=== PATIENT | male | born 1965 | race Caucasian/White ===

== ENCOUNTER → 2021-01-23 | Outpatient (CLI) | payer BC | LOC: ORTHO 14:50 | PROVIDERS: ATTEND Orthopaedic Surgery | DX: M17.12 Unilateral primary osteoarthritis, left knee (principal) | CPT/HCPCS: 20610 ==

== ENCOUNTER → 2021-04-10 | Outpatient (CLI) | payer BC ==
--- NOTE | 2021-04-10 18:19 | Diagnostic Imaging Report ---
INDICATION: Chronic left knee pain. TIME OF EXAM: 3:10 PM Significant medial compartmental degenerative changes noted. This is complete loss of the medial joint space. There is marginal osteophyte formation noted. Moderate patellofemoral degenerative changes noted. No fracture or dislocation is seen. There is some suprapatellar fullness and a small joint effusion could not be excluded. IMPRESSION: 1. Degenerative changes and a small joint effusion. No acute bony abnormality is detected. Dictated by: Dictated on workstation # [id number]
== END ==
LOC: ORTHO 14:47
PROVIDERS: ATTEND Orthopaedic Surgery
DX: M17.12 Unilateral primary osteoarthritis, left knee (principal)
CPT/HCPCS: 73564; 99212

== ENCOUNTER → 2021-05-29 | Outpatient (CLI) | payer BC | LOC: ORTHO 16:34 | PROVIDERS: ATTEND Orthopaedic Surgery | DX: M17.12 Unilateral primary osteoarthritis, left knee (principal) | CPT/HCPCS: 20610 ==

== ENCOUNTER → 2021-08-28 | Outpatient (CLI) | payer BC | LOC: ORTHO 02:45 | PROVIDERS: ATTEND Orthopaedic Surgery | DX: M17.12 Unilateral primary osteoarthritis, left knee (principal) | CPT/HCPCS: 20610 ==

== ENCOUNTER → 2021-10-21 | Outpatient (CLI) | payer BC ==
--- NOTE | 2021-10-21 10:03 | Diagnostic Imaging Report ---
PROCEDURE: MRI lumbar spine. TECHNIQUE: Multiplanar, multisequence MRI of the lumbar spine was performed without contrast. DATE: October 21, 2021. COMPARISON: None. INDICATION: 56-year-old male, low back pain and lower extremity radiculopathy. FINDINGS: There are bilateral L5 pars interarticularis defects. There is 3 mm grade 1 anterolisthesis of L5 on S1. There is posterior spinal fusion hardware spanning L3-L4. There is severe disc height loss at L3-L4. There is moderate disc height loss at L4-L5. There is moderate disc height loss at L2-L3. There is severe disc height loss at T12-L1. There is no evidence of a diffuse marrow infiltrating or replacing process. There is no identified focal concerning bone lesion, compression deformity, or fracture. The visualized cord and conus medullaris is unremarkable and terminates at the L1 level. T12-L1: There is a diffuse disc bulge. There is severe narrowing of the bilateral lateral recesses. The facet joints and ligamentum flavum are grossly unremarkable. There is moderate to severe bilateral foraminal stenosis. There is severe spinal stenosis. There is some prominence of the posterior epidural fat at this level. L1-L2: There is no disc bulge. There are mild bilateral facet degenerative changes without ligamentum flavum hypertrophy. There is mild bilateral foraminal narrowing. There is no spinal canal stenosis. L2-L3: There is a diffuse disc bulge eccentric to the right including superimposed right paracentral disc extrusion extending below the disc space level of L2-L3, best demonstrated on axial T2 sequence image 15. There is severe narrowing of the right lateral recess and moderate to severe narrowing of the left lateral recess. There are mild bilateral facet degenerative changes. There is moderate to severe right and mild left foraminal narrowing. There is severe spinal canal stenosis. L3-L4: There is no disc bulge. The facet joints and ligamentum flavum are unremarkable. There is moderate right foraminal narrowing. There is no spinal canal stenosis. L4-L5: There is a mild diffuse disc bulge. There are left greater than right facet degenerative changes. There is severe bilateral foraminal narrowing. There is no spinal canal stenosis. L5-S1: There is no disc protrusion or extrusion. The facet joints and ligamentum flavum are unremarkable. There is mild left foraminal narrowing. There is no spinal canal stenosis. There is an incompletely imaged T2 hyperintense lesion in the left iliac bone on axial image 31 measuring 1.5 cm in size. There is soft tissue edema in the region of post operative changes at L3-L4 without focal fluid collection. IMPRESSION: 1. Multilevel disc and facet degenerative changes of the thoracolumbar spine as described in detail level by level above. 2. Bilateral L5 pars intra-articularis defects with grade 1 anterolisthesis of L5 on S1. 3. Incompletely imaged T2 hyperintense lesion of the left iliac bone. Recommend correlation with prior imaging and/or CT pelvis without contrast for further assessment. Dictated by: Dictated on workstation # [id number]
== END ==
LOC: RAD 07:19
PROVIDERS: ATTEND Neurological Surgery
DX: M51.16 Intervertebral disc disorders with radiculopathy, lumbar region (principal); M48.07 Spinal stenosis, lumbosacral region; M43.17 Spondylolisthesis, lumbosacral region; M47.26 Other spondylosis with radiculopathy, lumbar region; M89.9 Disorder of bone, unspecified
CPT/HCPCS: 72148

== ENCOUNTER → 2021-12-04 | Outpatient (CLI) | payer BC | LOC: ORTHO 11:00 | PROVIDERS: ATTEND Orthopaedic Surgery | DX: M17.12 Unilateral primary osteoarthritis, left knee (principal) | CPT/HCPCS: 20610 ==

== ENCOUNTER → 2022-04-02 | Outpatient (CLI) | payer BC | LOC: ORTHO 11:30 | PROVIDERS: ATTEND Orthopaedic Surgery | DX: M17.12 Unilateral primary osteoarthritis, left knee (principal) | CPT/HCPCS: 20610 ==

== ENCOUNTER → 2022-11-24 | Outpatient (CLI) | payer OTHER | LOC: ORTHO 15:23 | PROVIDERS: ATTEND Orthopaedic Surgery | DX: M17.12 Unilateral primary osteoarthritis, left knee (principal) | CPT/HCPCS: 20610 ==